=== PATIENT | male | born 1955 | race Caucasian/White ===

== ENCOUNTER 2019-03-05 07:08 | Day surgery (SDC) | payer MEDICARE, BC ==
[2019-03-05] MEDS ORDERED: Propofol 200 MG/20 ML SDV IV ONE (07:09)
[2019-03-05] MEDS ORDERED: Lidocaine 1% PF 2 ML SDV INJECT ONE (07:09)
[2019-03-05] MEDS ORDERED: Sodium Chloride 0.9% 10 ML Syringe FLUSH PRN (07:30)
[2019-03-05] MEDS: Lactated Ringers 1,000 ML IV SCH (07:56)
--- NOTE | 2019-03-05 09:15 | PCM.OPNOTE ---
- General Post-Op/Procedure Note Date of Surgery/Procedure: 03/05/19 Operative Procedure(s): c scope Findings: cecal polyp Pre Op Diagnosis: screening Post-Op Diagnosis: cecal polyp Anesthesia Technique: MAC Primary Surgeon: Richie Shabazz Anesthesia Provider: Santos Lowery Pathology: cecal polyp Complications: None Condition: Good Free Text/Narrative:: see dictation
[2019-03-05 09:58] VITALS: BP 147/86
--- NOTE | 2019-03-05 11:25 | OR ---
DATE OF OPERATION: 03/05/2019 SURGEON: Richie Shabazz MD PROCEDURE PERFORMED: Colonoscopy with cold forceps biopsy. PREOPERATIVE DIAGNOSIS: Need for screening C-scope. POSTOPERATIVE DIAGNOSIS: Cecal polyp. INDICATIONS FOR PROCEDURE: This is a 63-year-old white male who presents for screening colonoscopy. He was offered and accepted same. DESCRIPTION OF OPERATION: After an excellent IV sedation was administered, digital rectal exam was performed. No marked abnormality was noted. Flexible colonoscope inserted and advanced to the cecum. Prep was excellent. The following findings were noted. Ascending colon, in the cecum, a small hyperplastic-appearing lesion, biopsied with cold biopsy forceps and sent for permanent. Transverse colon, unremarkable. Descending colon, unremarkable. Sigmoid and rectum, unremarkable. Colon was deflated. Scope was removed. The patient tolerated the procedure well and was taken to Recovery in a good condition. /[id number] JAQUI/QUEENIE
== END 2019-03-05 09:54 | disposition home or self-care (01) ==
LOC: FB.SDS 07:08
PROVIDERS: ATTEND Surgery
DX: Z12.11 Encounter for screening for malignant neoplasm of colon (principal); D12.0 Benign neoplasm of cecum; I10 Essential (primary) hypertension; G47.33 Obstructive sleep apnea (adult) (pediatric); E66.9 Obesity, unspecified; Z68.36 Body mass index [BMI] 36.0-36.9, adult; Z79.82 Long term (current) use of aspirin; Z79.51 Long term (current) use of inhaled steroids; Z79.899 Other long term (current) drug therapy; Z88.8 Allergy status to other drugs, medicaments and biological substances; Z91.048 Other nonmedicinal substance allergy status; Z87.891 Personal history of nicotine dependence; Z99.89 Dependence on other enabling machines and devices
CPT/HCPCS: 00812-QZ; 88305; J2001; J2704; J7120

== ENCOUNTER 2024-12-10 07:59 | Day surgery (SDC) | payer MEDICARE, BC ==
[2024-12-10] MEDS ORDERED: Phenylephrine 0.5% Nasal Spray 15 ML Bot NAS ONE (08:00)
[2024-12-10] MEDS ORDERED: Ketamine 500 mg/10 ML MDV IV ONE (08:00)
[2024-12-10] MEDS ORDERED: Propofol 200 MG/20 ML SDV IV ONE (08:00)
[2024-12-10] MEDS ORDERED: Midazolam 1 MG/ML 2 ML SDV IV ONE (08:00)
[2024-12-10] MEDS ORDERED: Sodium Chloride 0.9% 10 ML Syringe FLUSH PRN (08:15)
[2024-12-10] MEDS: Lactated Ringers 1,000 ML IV SCH (08:55)
[2024-12-10] MEDS: Simethicone Drops 40 MG/0.6 ML 30 ML Bottle ONE (09:16)
== END 2024-12-10 10:43 | disposition home or self-care (01) ==
LOC: FB.SDS 07:59
PROVIDERS: ATTEND Surgery
DX: Z12.11 Encounter for screening for malignant neoplasm of colon (principal); K57.30 Diverticulosis of large intestine without perforation or abscess without bleeding; Z86.0101 Personal history of adenomatous and serrated colon polyps; K42.9 Umbilical hernia without obstruction or gangrene; I10 Essential (primary) hypertension; J45.909 Unspecified asthma, uncomplicated; E78.5 Hyperlipidemia, unspecified; Z87.891 Personal history of nicotine dependence; Z79.899 Other long term (current) drug therapy
CPT/HCPCS: A9270; G0105; J2250; J2704; J3490; J7120; 00812; 99100